=== PATIENT | male | born 1980 | race Caucasian/White ===

== ENCOUNTER 2017-03-22 17:13 | Observation (INO) | payer SELFPAY ==
[~2017-03-22] VITALS: Ht 180.3 cm; Wt 90.7 kg
[2017-03-22] MEDS ORDERED: ONDANSETRON HCL INJ 2 MG/ML VIAL IV STA (17:34)
[2017-03-22] MEDS ORDERED: PANTOPRAZOLE 40 MG 10ML VIAL IV STA (17:34)
[2017-03-22] MEDS ORDERED: PANTOPRAZOLE 40 MG 10ML VIAL ONE (17:43)
[2017-03-22] MEDS ORDERED: LORAZEPAM INJ 2 MG/ML VIAL ONE (17:43)
[2017-03-22] MEDS ORDERED: ONDANSETRON HCL INJ 2 MG/ML VIAL ONE (17:44)
[2017-03-22] MEDS ORDERED: LORAZEPAM INJ 2 MG/ML VIAL IV ONE ×2 (17:45→18:30)
[2017-03-22] MEDS: SODIUM CHLORIDE 0.9% 1000ML 1,000 ML IV SCH (17:49)
[2017-03-22 18:01] LABS: BASOPHILS # (AUTO) 0.1 (0.0-0.1); BASOPHILS % 0.4 % (0.0-1.0); EOSINOPHILS % 0.1 % (0.0-6.0); HEMATOCRIT 44.5 % (38.2-49.6); HEMOGLOBIN 15.7 g/dL (14.0-18.0); LYMPHOCYTES # (AUTO) 2.3 (1.0-3.2); LYMPHOCYTES % 13.4 % (18.0-39.1); MEAN CORPUSCULAR HEMOGLOBIN 34.1 pg (28-32); MEAN CORPUSCULAR HGB CONC 35.3 g/dL (31-35); MEAN CORPUSCULAR VOLUME 96.5 fL (81-99); MONOCYTES % 5.8 % (4.4-11.3); NEUTROPHILS # (AUTO) 13.5 (2.1-6.9); NEUTROPHILS % 79.7 % (38.7-80.0); PLATELET COUNT 203 x10e3/uL (140-360); RED BLOOD COUNT 4.61 x10e6/uL (4.3-5.7); RED CELL DISTRIBUTION WIDTH 13.4 % (11.7-14.4)
--- NOTE | 2017-03-22 18:03 | Diagnostic Imaging Report ---
EXAMINATION: Chest, CHEST SINGLE (PORTABLE) INDICATION: Chest pain COMPARISON: None FINDINGS: LINES: None. Heart: Normal cardiac silhouette. Vascular: The pulmonary vasculature is within normal limits. Mediastinum: No mediastinal, hilar, or axillary mass or lymphadenopathy. Lungs: No parenchymal mass. No focal consolidation. Pleura: No pleural effusion. No pneumothorax. Bones: No acute osseous abnormality. Soft tissues: Normal. Impression: No acute radiographic abnormality. Signed by: Dr. Danny Duran M.D. on 03/22/2017 6:00 PM
[2017-03-22] MEDS ORDERED: PROMETHAZINE 12.5MG/ NACL 0.9% 12.5 MG/50 ML BAG IV ONE (18:15)
[2017-03-22 18:22] LABS: ALANINE AMINOTRANSFERASE 40 IU/L (0-55); ALBUMIN 4.5 g/dL (3.5-5.0); ALBUMIN/GLOBULIN RATIO 1.3 (0.8-2.0); ALKALINE PHOSPHATASE 55 IU/L (40-150); ANION GAP 22.1 mmol/L (8-16); BLOOD UREA NITROGEN 8 mg/dL (7-26); BUN/CREATININE RATIO 11 (6-25); CALCIUM 8.9 mg/dL (8.4-10.2); CARBON DIOXIDE 16 mmol/L (22-29); CHLORIDE 102 mmol/L (98-107); CREATINE KINASE 404 IU/L (30-200); CREATININE, SERUM 0.73 mg/dL (0.72-1.25); EST GLOMERULAR FILTRATION RATE > 60 ML/MIN (60-); GLUCOSE 86 mg/dL (74-118); POTASSIUM 3.1 mmol/L (3.5-5.1); SODIUM 137 mmol/L (136-145)
[2017-03-22] MEDS ORDERED: LABETALOL HCL IV 5 MG/ML 20ML MDV IV STA (18:49)
[2017-03-22 19:24] LABS: AMPHETAMINES SCREEN,URINE POSITIVE (NEGATIVE)
[2017-03-22 19:26] LABS: BENZODIAZEPINES SCREEN,URINE NEGATIVE (NEGATIVE); PHENCYCLIDINE SCREEN,URINE NEGATIVE (NEGATIVE)
[2017-03-22] MEDS ORDERED: PROMETHAZINE HCL (IM) 25 MG/ML VIAL IV PRN (19:45)
[2017-03-22] MEDS ORDERED: LORAZEPAM INJ 2 MG/ML VIAL IV PRN (19:45)
[2017-03-22] MEDS ORDERED: PROMETHAZINE 25MG/ NS 50ML (IV) IV PRN (20:00)
[2017-03-22] MEDS: MORPHINE SULFATE 2 MG/ML SYR IV PRN (20:13)
[2017-03-22] MEDS: LABETALOL HCL IV 5 MG/ML 20ML MDV IV PRN (20:15)
[2017-03-22] MEDS: FAMOTIDINE 20 MG TAB PO SCH (20:33)
--- OUTSIDE RECORDS SUMMARY | 2017-03-22 20:36 | XMS REPORT ---
Author Author [facility] Address Unknown Phone Unavailable Care Team Providers Care Housekeeping/Laundry Name Role Phone NADIR DIALLO Unavailable Unavailable Problems This patient has no known problems. Allergies, Adverse Reactions, Alerts This patient has no known allergies or adverse reactions. Medications This patient has no known medications. Results Test Description Test Time Test Comments Text Results Atomic Results Result Comments CHEST SINGLE (PORTABLE) [place] [address] Patient Name: JESSICA HALL MR #: [id number] : 1980 Age/Sex: 37/M Req #: [id number] Adm Physician: Ordered by: NADIR DIALLO MD Report # : [id number] Location: ER Room/Bed: Procedure: 0211 -[id number] DX/CHEST SINGLE (PORTABLE) Exam Date: 03/22/17 Exam Time: 1735 REPORT STATUS: Signed EXAMINATION: Chest, CHEST SINGLE (PORTABLE) INDICATION: Chest pain COMPARISON: None FINDINGS: LINES: None. Heart: Normal cardiac silhouette. Vascular: The pulmonary vasculature is within normal limits. Mediastinum: No mediastinal, hilar, or axillary mass or lymphadenopathy. Lungs: No parenchymal mass. No focal consolidation. Pleura: No pleural effusion. No pneumothorax. Bones: No acute osseous abnormality. Soft tissues: Normal. Impression: No acute radiographic abnormality. Signed by: Dr. Shantanu Jain M.D. on 03/22/2017 6:00 PM Dictated By: SHANTANU JAIN MD 1800 Transcribed By: ESTEBAN on 03/22/17 1800 COPY TO: NADIR DIALLO MD
[2017-03-22] MEDS ORDERED: POTASSIUM CHLORIDE 20 MEQ TAB CR PO STA (20:56)
[2017-03-22 21:30] VITALS: BP_SYST 155; BP_SYST 160; BP_DIAS 102; BP_DIAS 108
[2017-03-23 00:12] VITALS: BP 166/109
[2017-03-23] MEDS: MORPHINE SULFATE 2 MG/ML SYR IV PRN ×3 (00:38→08:47)
[2017-03-23] MEDS: LABETALOL HCL IV 5 MG/ML 20ML MDV IV PRN (01:58)
[2017-03-23] MEDS: SODIUM CHLORIDE 0.9% 1000ML 1,000 ML IV SCH ×2 (03:45→11:09)
[2017-03-23 04:00] VITALS: BP 164/116
[2017-03-23 07:00] VITALS: BP 174/115
[2017-03-23 07:08] LABS: BASOPHILS # (AUTO) 0.1 (0.0-0.1); BASOPHILS % 0.7 % (0.0-1.0); EOSINOPHILS # (AUTO) 0.1 (0.0-0.4); EOSINOPHILS % 1.7 % (0.0-6.0); HEMOGLOBIN 13.2 g/dL (14.0-18.0); LYMPHOCYTES # (AUTO) 3.1 (1.0-3.2); LYMPHOCYTES % 36.7 % (18.0-39.1); MEAN CORPUSCULAR HEMOGLOBIN 34.4 pg (28-32); MEAN CORPUSCULAR HGB CONC 34.7 g/dL (31-35); MONOCYTES # (AUTO) 0.7 (0.2-0.8); MONOCYTES % 8.6 % (4.4-11.3); NEUTROPHILS # (AUTO) 4.4 (2.1-6.9); NEUTROPHILS % 51.8 % (38.7-80.0); PLATELET COUNT 165 x10e3/uL (140-360); RED BLOOD COUNT 3.84 x10e6/uL (4.3-5.7); RED CELL DISTRIBUTION WIDTH 13.8 % (11.7-14.4)
--- NOTE | 2017-03-23 07:21 | History and Physical ---
PRIMARY CARE PHYSICIAN: None CHIEF COMPLAINT: Chest pain. HISTORY OF PRESENT ILLNESS: This is a 37-year-old man with a history of hypertension and substance abuse now developing chest pain. Patient says that the chest pain was in the substernal region with numbness along the arms, nausea and vomiting. He denies any narcotic use. However, urine toxicology does show positive methadone, positive amphetamine and positive cannabinoids. Alcohol level is also 67.8. He admits to excessive alcohol use, drinking two 40 ounce alcoholic beverages and some times 1 pint of Vodka on a daily basis. He smokes half a pack of cigarettes per day. He said his discomfort persists in his midchest region. PAST MEDICAL HISTORY: Hypertension, polysubstance abuse, cigarette abuse, GERD, alcohol abuse. PAST SURGICAL HISTORY: Appendectomy with perforated intestine. ALLERGIES: PER ELECTRONIC MEDICAL RECORD. FAMILY HISTORY: Hypertension. SOCIAL HISTORY: Patient is single with 3 children. Drinks two 40 ounce beverages and 1 pint of Vodka on a daily basis. Half a pack of cigarettes per day. Denies any IV drug use. MEDICATIONS: Per electronic medical record. REVIEW OF SYSTEMS: Denies any dizziness or chest pain. PHYSICAL EXAMINATION VITAL SIGNS: Have been reviewed. GENERAL: A tired-appearing man resting in bed. HEENT: Anicteric. Pupils respond to light. No oral lesions. CARDIOVASCULAR: Normal S1 and S2. LUNGS: Moderate breath sounds. ABDOMEN: Soft, nontender and nondistended. EXTREMITIES: No edema or calf tenderness. NEUROLOGICAL: He is alert and oriented times 3. Moving all extremities. SKIN: Dry. PSYCHIATRIC: Flat affect. MUSCULOSKELETAL: He has tenderness in the low substernal region. LABS: Reviewed. MEDICATIONS: Reviewed. ASSESSMENT AND PLAN: This is a 37-year-old man with: 1. Chest pain: Cardiac enzymes are negative yesterday. Will obtain a 2nd enzyme today. Will obtain a 2nd enzyme now. Will obtain a lipid panel and hemoglobin A1c. Will continue beta isaiah. Will add aspirin 81 mg. Will add statin and obtain a lipid panel. 2. Substance abuse including narcotics and alcohol: Will consult psych social worker to assist in providing resources. Will utilizing lorazepam p.r.n. Will use Xanax q.8 h. 3. Increased anion gap and metabolic acidosis secondary to substance abuse. 4. Hypokalemia: Replace and recheck. 5. Acute rhabdomyolysis: Rehydrate the patient. 6. Leukocytosis: Could be leukemoid reaction secondary to substance abuse. Will reassess. Will also obtain a urinalysis. 7. Prophylaxis: Will utilize Pepcid and Lovenox. 8. Disposition: Obtain another troponin level now. Control his blood pressure using labetalol. Use aspirin and Lovenox. Job#: [id number]
[2017-03-23 07:27] VITALS: BP 174/115
[2017-03-23] MEDS ORDERED: LABETALOL HCL 100 MG TAB PO SCH (07:30)
[2017-03-23 07:35] LABS: CREATINE KINASE MB 1.8 ng/mL (0.00-5.00)
[2017-03-23 07:46] LABS: ANION GAP 14.1 mmol/L (8-16); BLOOD UREA NITROGEN 7 mg/dL (7-26); BUN/CREATININE RATIO 9 (6-25); CALCIUM 8.3 mg/dL (8.4-10.2); CARBON DIOXIDE 19 mmol/L (22-29); CHLORIDE 106 mmol/L (98-107); CREATININE, SERUM 0.82 mg/dL (0.72-1.25); EST GLOMERULAR FILTRATION RATE > 60 ML/MIN (60-); GLUCOSE 129 mg/dL (74-118); POTASSIUM 3.1 mmol/L (3.5-5.1); SODIUM 136 mmol/L (136-145)
[2017-03-23 08:00] LABS: CHOL/HDL RATIO 1.9 (3.9-4.7)
[2017-03-23] MEDS: FAMOTIDINE 20 MG TAB PO SCH (08:43)
[2017-03-23] MEDS ORDERED: ASPIRIN 81 MG CHEW TAB PO SCH (09:00)
[2017-03-23 11:33] VITALS: BP 162/98
[2017-03-23] MEDS ORDERED: ALPRAZOLAM 0.25 MG TAB PO SCH (14:00)
[2017-03-23] MEDS ORDERED: ENOXAPARIN SOD INJ 40 MG/0.4 ML SYR SC SCH (17:00)
== END 2017-03-23 14:13 | disposition left against medical advice (07) ==
LOC: ER 17:13 → IMCU 19:38
PROVIDERS: ADMIT Internal Medicine; ATTEND Internal Medicine
DX: R07.9 Chest pain, unspecified (principal); F15.10 Other stimulant abuse, uncomplicated; F10.180 Alcohol abuse with alcohol-induced anxiety disorder; F11.10 Opioid abuse, uncomplicated; Z72.0 Tobacco use; I10 Essential (primary) hypertension; E87.2 Acidosis; M62.82 Rhabdomyolysis; E87.6 Hypokalemia; Y90.3 Blood alcohol level of 60-79 mg/100 ml
CPT/HCPCS: 36415 ×2; 71045; 80048; 80053; 80061; 80307; 80320; 82550 ×2; 82553 ×2; 83036; 83735; 84443; 84484 ×2; 85025 ×2; 87086; 93005; G0378 ×2; J2060; J2270 ×2; J2405; J2550; J3490 ×2; J7030 ×2